=== PATIENT | female | born 1970 | race American Indian/Alaskan Native ===

== ENCOUNTER 2018-01-16 06:08 | Day surgery (SDC) | payer MEDICAID ==
[2018-01-16] MEDS ORDERED: ECOTRIN PO ONE (06:29)
[2018-01-16 06:55] LABS: Basophils # (Auto) 0.1 K/mm3 (0.0-0.1); Basophils % (Auto) 1.4 % (0.0-1.8); Eosinophils # (Auto) 0.4 K/mm3 (0.0-0.4); Eosinophils % (Auto) 5.5 % (0.0-4.3); Hematocrit 41.1 % (30.3-42.9); Lymphocytes # (Auto) 3.7 K/mm3 (1.2-5.4); Lymphocytes % (Auto) 46.7 % (13.4-35.0); Mean Corpuscular HGB Conc 34 % (30-34); Mean Corpuscular Hemoglobin 31 pg (28-32); Mean Corpuscular Volume 90 fl (79-97); Monocytes # (Auto) 0.5 K/mm3 (0.0-0.8); Monocytes % (Auto) 6.6 % (0.0-7.3); Platelet Count 183 K/mm3 (140-440); Red Blood Count 4.56 M/mm3 (3.65-5.03); Red Cell Distribution Width 13.4 % (13.2-15.2)
[2018-01-16] MEDS ORDERED: NACL 0.9% 500 ML 500 ML IV SCH (07:00)
[2018-01-16 07:08] LABS: INR 0.91 (0.87-1.13)
[2018-01-16 07:11] LABS: BUN/Creatinine Ratio 7; Blood Urea Nitrogen 5 mg/dL (7-17); Calcium 9.5 mg/dL (8.4-10.2); Hemolysis Index 45
[2018-01-16 07:20] LABS: Partial Thromboplastin Time 28.6 Sec. (24.2-36.6)
[2018-01-16] MEDS ORDERED: K-DUR PO NR (07:54)
[2018-01-16] MEDS ORDERED: SUBLIMAZE ONE (08:23)
[2018-01-16] MEDS ORDERED: VERSED ONE (08:23)
[2018-01-16] MEDS ORDERED: HEPARIN/NS 5000 UNIT/500ML(CATH LAB) 1,000 ML IR ONE (08:23)
[2018-01-16] MEDS ORDERED: HEPARIN 10,000 UNITS/10 ML ONE (08:23)
[2018-01-16] MEDS ORDERED: CALAN ONE (08:24)
[2018-01-16] MEDS ORDERED: XYLOCAINE 2% INFILTRATI ONE (08:41)
[2018-01-16] MEDS: XYLOCAINE 2% INFILTRATI ONE ×2 (08:42→08:43)
[2018-01-16] MEDS ORDERED: APRESOLINE ONE (08:57)
--- NOTE | 2018-01-16 09:30 | Cardiac Catherization Report ---
INDICATION FOR PROCEDURE: The patient is a 47-year-old white female with history of hypertension, dyslipidemia, diastolic dysfunction, mitral regurgitation, was having atypical chest pain with chest pressure. She has uncontrolled hypertension. Echocardiogram showed LVH with satisfactory systolic function, but there is moderate mitral regurgitation noted. Because of atypical symptoms and mild anterior abnormalities on the nuclear stress testing, the patient is scheduled for cardiac catheterization for definitive diagnosis and treatment. The patient is aware of the procedure, potential complications and alternatives of therapy available. DESCRIPTION OF PROCEDURE: The patient was brought to the catheterization laboratory in a fasting condition. The patient was prepared in standard fashion and the right femoral artery was prepared with chlorhexidine solution. The patient has a ring in the right hand, which cannot be removed, because of this right radial artery was not used. Local anesthesia was given in the right groin. After evaluating for moderate sedation, the patient received IV sedation with Versed and fentanyl. Right femoral artery puncture was made under fluoroscopy with 5-[place] micropuncture needle. A 5-[place] radial sheath was inserted. A 5-[place] multipurpose catheter was used to obtain the angiograms of the left coronary artery in multiple views followed by angiogram of the right coronary artery in multiple views. Subsequently, using power injector and a pigtail catheter, left ventriculogram was performed in OLSON projection using 30 mL of dye at 10 mL per second. At the end of the procedure, catheter and sheath were removed. Good hemostasis was achieved with manual pressure. The patient was evaluated for moderate sedation prior to the procedure and she was felt to be appropriate candidate. The patient received IV sedation, starting at 8:36 a.m. with IV Versed and fentanyl. She was monitored hemodynamically along with EKG and pulse oximetry up to 8:51 a.m. The patient tolerated the sedation well. At the end of the procedure, the patient is communicative, talking normally, moving all the extremities. No untoward side effects were noted. The patient was transferred to the outpatient area in stable condition. Following findings were noted. HEMODYNAMICS: 1. Opening aortic pressure 187/109, left ventricular pressure 199/36. No gradient across the aortic valve. Estimated ejection fraction lower limits of normal. Left ventricular size is within normal limits. Contractility is probably lower limits of normal with estimated ejection fraction of 50%. Only 1+ mitral regurgitation noted on the LV gram. 2. Right coronary artery, dominant vessel, arises normally from right coronary cusp, angiographically smooth and normal. 3. Left coronary artery arises normally from left coronary cusp. Left main is long, smooth. LAD curves around the apex. LAD and its branches, circumflex artery and its branches and left main are angiographically smooth and normal. FINAL IMPRESSION: 1. Normal sized left ventricle, systolic function lower limits of normal, ejection fraction of 50% with markedly elevated end-diastolic pressure of 36. 2. Significant systolic and diastolic hypertension. 3. Normal coronary anatomy. 4. Right femoral artery was used for access and good hemostasis was achieved with manual pressure. No untoward complications were noted. The patient tolerated the procedure well. Findings were explained to the patient and her . Will continue risk factor modification and control of her blood pressure. JOB# [id number] REYNA/GIOVANA
[2018-01-16 13:38] VITALS: BP 149/82
--- NOTE | 2018-01-19 16:26 | Short Stay Summary ---
Short Stay Documentation Date of service: 01/16/18 - History H&P: obtained from office - Allergies and Medications Current Medications: Allergies codeine Allergy (Verified 01/16/18 08:38) Itching hydrocodone Allergy (Verified 01/16/18 08:38) Itching acetaminophen [From Tylenol-Codeine #3] Adverse Reaction (Intermediate, Verified 01/16/18 08:40) hallunications Home Medications Medication Instructions Recorded Confirmed Last Taken Type ALBUTEROL Inhaler (OR & NICU) 2 puff IH QID PRN 01/16/18 01/16/18 Unknown History [Proair] Amitriptyline [Elavil] 25 mg PO QHS 01/16/18 01/16/18 01/15/18 History Baclofen [Lioresal] 10 mg PO TID 01/16/18 01/16/18 01/15/18 History Fexofenadine HCl 180 mg PO DAILY 01/16/18 01/16/18 01/15/18 History Folic Acid [Folvite] 1 mg PO DAILY 01/16/18 01/16/18 Unknown History Gabapentin [Neurontin] 400 mg PO Q8HR 01/16/18 01/16/18 01/15/18 History Lisinopril 20 mg PO DAILY 01/16/18 01/16/18 01/16/18 05:00 History Metoprolol [Lopressor] 25 mg PO BID 01/16/18 01/16/18 01/16/18 05:00 History Potassium 99 mg PO DAILY 01/16/18 01/16/18 01/15/18 History Spironolactone 12.5 mg PO DAILY 01/16/18 01/16/18 01/16/18 05:00 History buPROPion SR [Wellbutrin SR] 150 mg PO DAILY 01/16/18 01/16/18 01/15/18 History - Brief post op/procedure progress note Date of procedure: 01/16/18 Pre-op diagnosis: chest pain Post-op diagnosis: same Procedure: C - see dictated cath report Anesthesia: local Estimated blood loss: none Condition: stable - Disposition Condition at discharge: Good Disposition: [id number] TO HOME OR SELFCARE - Discharge Diagnoses (1) HTN (hypertension) Status: Chronic (2) Dyslipidemia Status: Chronic (3) Diastolic dysfunction Status: Chronic (4) Mitral regurgitation Status: Chronic (5) Normal coronary arteries Status: Chronic Short Stay Discharge Plan Activity: advance as tolerated Diet: low fat, low cholesterol, low salt Wound: open to air, keep clean and dry, per your surgeon's advice Follow up with: RISHI CENTENO MD [Staff Physician] - 7 Days CONSTANCE PITTMAN MD [Primary Care Provider] - 7 Days Forms: CardCath PCI D/C Instructions
== END 2018-01-16 13:05 | disposition home or self-care (01) ==
LOC: CATHLABREC 06:08
PROVIDERS: ATTEND Internal Medicine
DX: I34.0 Nonrheumatic mitral (valve) insufficiency (principal); I10 Essential (primary) hypertension; E78.5 Hyperlipidemia, unspecified; R07.89 Other chest pain; F17.210 Nicotine dependence, cigarettes, uncomplicated; E78.00 Pure hypercholesterolemia, unspecified; J45.909 Unspecified asthma, uncomplicated; K21.9 Gastro-esophageal reflux disease without esophagitis; M19.90 Unspecified osteoarthritis, unspecified site; F32.9 Major depressive disorder, single episode, unspecified; Z79.899 Other long term (current) drug therapy; Z88.5 Allergy status to narcotic agent; Z98.51 Tubal ligation status; Z98.890 Other specified postprocedural states; Z88.8 Allergy status to other drugs, medicaments and biological substances
CPT/HCPCS: 36415; 51701; 80048; 85025; 85610; 85730; 93005; 93010; 93458; 99156; 99157; C1894; J0360; J1644; J2250; J3010; J7040; Q9967